=== PATIENT | female | born 1995 | race Two or more races ===

== ENCOUNTER 2019-05-05 13:04 | Emergency (ER) | payer OTHER ==
[2019-05-05 13:08] VITALS: BP 104/63; PULSE 75; TEMP 97; BMI 22.6
--- NOTE | 2019-05-05 13:32 | PDOC ---
History of Present Illness - General Chief Complaint: ,Possible Stated Complaint: Time Seen by Provider: 05/05/19 13:26 History Source: Patient - History of Present Illness Initial Comments: 05/05/19 13:59 Ms. Otero is a 24 y/o woman with hx heroin use disorder who presents to the ED as a transfer from [address] [place] [address] for detox alongside newly discovered . She reports that she presented for detox this morning, and during that process was found to have a positive test. [address] [place] [address] does not admit patients for detox, and so she was transferred here for evaluation. [facility] does not admit patients for detox either. She reports that her last dose of heroin was this morning at around 0830 , and she denies any symptoms of detox. She is unsure when her last menstrual period was, and reports that during her last two pregnancies her period remained irregular up to month 5. She has no other complaints at this time. She denies any fever, chills, change in appetite, fatigue, night sweats, tremors, confusion, abdominal pain, shortness of breath, or chest pain. Timing/Duration: 1-3 hours Past History - Past Medical History Allergies/Adverse Reactions: Allergies Allergy/AdvReac Type Severity Reaction Status Date / Time onion Allergy Intermediate Swelling Verified 05/05/19 13:08 Home Medications: Ambulatory Orders NK [No Known Home Medication] 05/05/19 COPD: No - Suicide/Smoking/Psychosocial Hx Smoking History: Current every day smoker Number of Cigarettes Smoked Daily: 10 Information on smoking cessation initiated: No Drug/Substance Use Hx: Yes (heroin, marajuana) Review of Systems - Review of Systems Able to Perform ROS?: Yes Comments:: 05/05/19 13:58 ROS: GENERAL/CONSTITUTIONAL: No fever or chills. No weakness. HEAD, EYES, EARS, NOSE AND THROAT: No change in vision. No ear pain or discharge. No sore throat. CARDIOVASCULAR: No chest pain or shortness of breath RESPIRATORY: No cough, wheezing, or hemoptysis. GASTROINTESTINAL: No nausea, vomiting, diarrhea or constipation. GENITOURINARY: No dysuria, frequency, or change in urination. MUSCULOSKELETAL: No joint or muscle swelling or pain. No neck or back pain. SKIN: No rash NEUROLOGIC: No headache, vertigo, loss of consciousness, or change in strength/ sensation. ENDOCRINE: No increased thirst. No abnormal weight change HEMATOLOGIC/LYMPHATIC: No anemia, easy bleeding, or history of blood clots. ALLERGIC/IMMUNOLOGIC: No hives or skin allergy. *Physical Exam - Vital Signs Last Vital Signs Temp Pulse Resp BP Pulse Ox 97 F L 75 18 104/63 05/05/19 13:05 05/05/19 13:05 05/05/19 13:05 05/05/19 13:05 - Physical Exam Comments: 05/05/19 13:58 PE: GENERAL: Awake, alert, and fully oriented, in no acute distress HEAD: No signs of trauma, normocephalic, atraumatic EYES: PERRLA, EOMI, sclera anicteric, conjunctiva clear ENT: Auricles normal inspection, hearing grossly normal, nares patent, oropharynx clear without exudates. Moist mucosa NECK: Normal ROM, supple, no lymphadenopathy, JVD, or masses LUNGS: No distress, speaks full sentences, clear to auscultation bilaterally HEART: Regular rate and rhythm, normal S1 and S2, no murmurs, rubs or gallops, peripheral pulses normal and equal bilaterally. ABDOMEN: Soft, nontender, normoactive bowel sounds. No guarding, no rebound. No masses EXTREMITIES : Normal inspection, Normal range of motion, no edema. No clubbing or cyanosis. NEUROLOGICAL: Normal speech, normal gait, no focal sensorimotor deficits SKIN: Warm, Dry, normal turgor, no rashes or lesions noted ED Treatment Course - LABORATORY CBC & Chemistry Diagram: 05/05/19 04:49 05/05/19 04:49 Medical Decision Making - Medical Decision Making 05/05/19 13:52 24 y/o F with hx heroin use disorder transferred from [address] [place] [address] as they are unable to admit for detox after finding that she is , which she learned today. No signs of acute withdrawal (last dose approx 0830 this AM). She reports that she should not feel withdrawal symptoms until approx 2200. Plan: CBC CMP Serum Salicilates Serum EtOH Serum beta-hcg UA Urine tox screen Dispo: Pending case management/social work discussion --- Case discussed with case management. They contacted [facility], who admits patients for detox, and they have a bed available. Transfer in process to [facility]. Patient in agreement with plan. Patient reporting onset of nausea. Zofran sublingual ordered. 05/05/19 14:42 Patient nurse, watch case polisher, and ED shoe clerk discussed transport plan. Instead of hospital transfer, plan [facility] discharge [facility] Patient in agreement with plan. 05/05/19 15:47 Ms. Otero discharged, transported via cab without incident. *DC/Admit/Observation/Transfer Diagnosis at time of Disposition: Desire for detoxification - Discharge Dispostion Disposition: HOME Condition at time of disposition: Good Decision to Admit order: No - Referrals - Patient Instructions Printed Discharge Instructions: DI for Drug or Alcohol Withdrawal Additional Instructions: You were seen at [facility] Emergency Department for inpatient detox, transferred from [facility]. We have arranged for you to be seen at [facility] right away, they are expecting you and have a bed for you there. They can work with you both for the detox and managing the at the same time. Please go directly to [facility], and follow with their detox instructions as directed. Please return if you are experiencing signs of acute withdrawal. - Post Discharge Activity
[2019-05-05] MEDS ORDERED: ONDANSETRON *ODT* 4 MG TABLET SL ONE (14:39)
[2019-05-05] MEDS ORDERED: ONDANSETRON *ODT* 4 MG TABLET ONE (14:45)
--- NOTE | 2019-05-05 14:47 | PDOC ---
Attending Attestation - Resident Resident Name: Marco A Price - ED Attending Attestation I have performed the following: I have examined & evaluated the patient, The case was reviewed & discussed with the resident, I agree w/resident's findings & plan - HPI HPI: 05/05/19 14:44 24-year-old female history of heroin substance abuse presented to behavior health services for detox today, had positive urine , referred to this site for further evaluation and management. Last use was 8 AM, has no complaints otherwise, has history of asthma without any respiratory complaints. Patient has self detoxed in the past, never admitted to a detox facility. - Physicial Exam PE: 05/05/19 14:46 Vital signs normal Point of care test from [facility] positive, we'll repeat here Heart is regular, lungs are clear without wheezing Neurologically intact - Medical Decision Making 05/05/19 14:46 24-year-old female presenting for detox from heroin, no active withdrawal or intoxication, positive . Labs and EKG for medical clearance Case management involved, has arranged for patient to be brought to [facility] for detox admission will medically clear and discharge for voluntary detox admission 05/05/19 15:56 labs wnl, tox negative. serum confirmed positive, beta quant pending. u/s deferred as patient transport to [place] pending. Given no acute complaints or findings, will defer additional evaluation to receiving hospital. Heart Score/ECG Review #1 ECG reviewed & interpreted by me at: 14:36 General ECG Interpretation: Sinus Rhythm, Normal Rate (76), Normal Intervals ( qtc 423, ? LPFB), No acute ischemic changes
[2019-05-05 15:30] LABS: BASO % 0.3 % (0-2.0); EOS % 2.5 % (0-4.5); HEMATOCRIT 30.6 % (32.4-45.2); HEMOGLOBIN 10.3 GM/dL (10.7-15.3); LYMPH % 22.7 % (8-40); MCH 29.4 pg (25.7-33.7); MCHC 33.5 g/dl (32.0-36.0); MEAN CELL VOLUME 87.6 fl (80-96); MONO % 5.5 % (3.8-10.2); PLATELET COUNT 255 K/MM3 (134-434); RBC 3.49 M/mm3 (3.60-5.2); RDW 14.4 % (11.6-15.6); WHITE BLOOD COUNT 9.4 K/mm3 (4.0-10.0)
[2019-05-05 15:41] LABS: ALBUMIN 3.2 g/dl (3.4-5.0); ALK PHOS 59 U/L (45-117); ANION GAP 6 MMOL/L (8-16); BILIRUBIN,TOTAL 0.4 mg/dL (0.2-1); BLOOD UREA NITROGEN 5.9 mg/dL (7-18); CALCIUM 8.6 mg/dL (8.5-10.1); CHLORIDE 104 mmol/L (98-107); CO2 28 mmol/L (21-32); CREATININE 0.5 mg/dL (0.55-1.3); GLUCOSE,RANDOM 78 mg/dL (74-106); POTASSIUM 4.1 mmol/L (3.5-5.1); SGOT/AST 8 U/L (15-37); SGPT/ALT 12 U/L (13-61); SODIUM 139 mmol/L (136-145); TOT PROT 6.8 g/dl (6.4-8.2)
--- NOTE | 2019-05-05 16:22 | EKG ---
Test Reason : Blood Pressure : / mmHG Vent. Rate : 076 BPM Atrial Rate : 076 BPM P-R Int : 154 ms QRS Dur : 084 ms QT Int : 376 ms P-R-T Axes : 069 069 038 degrees QTc Int : 423 ms NORMAL SINUS RHYTHM WITH SINUS ARRHYTHMIA NO PREVIOUS ECGS AVAILABLE Confirmed by MD Hannah, Cr ([id number]) on 05/05/2019 4:21:55 PM Referred By: Confirmed By:Cr Young MD
== END 2019-05-05 16:10 | disposition home or self-care (01) ==
LOC: JER 13:04
DX: O99.320 Drug use complicating pregnancy, unspecified trimester (principal); F11.23 Opioid dependence with withdrawal; F17.210 Nicotine dependence, cigarettes, uncomplicated
CPT/HCPCS: 36415; 80053; 80307; 81025; 84702; 84703; 85025; 93005; 93010; 99282-25; Q0162